=== PATIENT | male | born 1975 | race Caucasian/White ===

== ENCOUNTER 2023-02-24 08:02 | Day surgery (SDC) | payer BC ==
[2023-02-24] MEDS ORDERED: Propofol 200 MG/20 ML SDV ONE (08:11)
[2023-02-24] MEDS ORDERED: fentaNYL 50 MCG/ML SDV ONE (08:11)
[2023-02-24] MEDS ORDERED: Midazolam 1 MG/ML 2 ML SDV ONE (08:11)
[2023-02-24] MEDS ORDERED: Sodium Chloride 0.9% 1,000 ML IV SCH (08:30)
== END 2023-02-24 10:05 | disposition home or self-care (01) ==
LOC: JP.SDS 08:02
PROVIDERS: ATTEND Surgery
DX: Z12.11 Encounter for screening for malignant neoplasm of colon (principal); D12.5 Benign neoplasm of sigmoid colon; I10 Essential (primary) hypertension
CPT/HCPCS: 45380; 88305; J2250; J2704; J3010; J7030